=== PATIENT | female | born 1975 | race Caucasian/White ===

== ENCOUNTER 2023-10-22 07:59 | Outpatient (CLI) | payer BC, SELFPAY ==
--- NOTE | ~2023-10-22 | XR_ITS ---
EXAMINATION: XR lg joint inject/asp w image DATE: 10/22/2023 09:09 INDICATION: Right hip pain TECHNIQUE: A time-out was performed to verify the patient's name, date of , and procedure to b e performed. The procedure including the risks, benefits, and alternatives was discussed with the pat ient. Risks discussed included bleeding and infection. The patient understood the risks and agreed to proceed. The skin overlying the right hip joint was prepped and draped in usual sterile fashion. A nesthetic was administered with 1% lidocaine subcutaneously. A 22 G needle was advanced under fluoro scopic guidance into the joint. Injection of 1 mL of Omnipaque 240 confirmed intra-articular positio n of the needle. Subsequently, injectate consisting of 12 mL of 2:1:1 mixture of sterile saline:Omni paque 240:1% lidocaine mixed 200:1 with 529 mg/mL Multihance gadolinium contrast was instilled. Intr a-articular demonstration was confirmed with intermittent fluoroscopy. The needle was removed and the entry site was cleaned and dressed. There were no immediate complications. Fluoroscopy exposure lorraine e was 0.1 minutes. The total number of images was 7. Total DAP was 0.4 mGycm^2 FINDINGS: Real-time fluoroscopy demonstrates the needle in the right hip joint. Patient's pain prior to procedure:1/10. Patient's pain following the procedure: 0/10. IMPRESSION: 1. Successful right hip joint injection of a dilute gadolinium contrast mixture for subsequent MRI ar throgram which will be dictated separately. Reviewed, dictated and finalized at location A. [employer] IMPRESSION: 1. Successful right hip joint injection of a dilute gadolinium contrast mixture for subsequent MRI arthrogram which will be dictated separately.
--- NOTE | ~2023-10-22 | MR_ITS ---
EXAMINATION: MR hip RT w con DATE: 10/22/2023 09:38 INDICATION: Right hip pain. Labral tear. TECHNIQUE: Magnetic resonance imaging (MRI) of the right hip was performed without intravenous contra st after intra-articular injection of contrast (MR arthrogram). COMPARISON: None FINDINGS: Bones/cartilage: Bone alignment is normal. No fracture. There is mild osteoarthritis of the sacroiliac joints. The fem oral head/neck junctions are normal in morphology. Small [id number] images of right hip demonstrat e tiny osteophytes. There is deep partial thickness cartilage loss of femoral head at the medial post erior superior aspect. There is partial-thickness cartilage loss of right acetabulum. Labrum: Right acetabular labrum is normal. Fluid: The right hip joint is well distended by contrast. There is no left hip joint effusion. There is mild bilateral trochanteric bursitis. Soft tissues: The gluteus medius and gluteus minimus tendons are normal. The iliopsoas tendons are normal. The hams tring tendon origins are normal. IMPRESSION: 1. Moderate chondrosis of right hip. Reviewed, dictated and finalized at location E. R BRICKLAYER
== END 2023-10-22 08:00 | disposition home or self-care (01) ==
PROVIDERS: Visit Provider Physician Assistant
DX: M94.251 Chondromalacia, right hip (principal)
CPT/HCPCS: 20610; 73722; 77002; A9577; Q9966